=== PATIENT | male | born 1985 | race Caucasian/White ===

== ENCOUNTER → 2017-02-17 | Outpatient (CLI) | payer MEDICARE | LOC: KOH-I 08:00 | DX: M25.561 Pain in right knee (principal); M25.461 Effusion, right knee | CPT/HCPCS: 73721 ==

== ENCOUNTER 2017-03-21 03:44 | Emergency (ER) | payer MEDICARE | END 2017-03-21 05:15 | disposition home or self-care (01) | LOC: ER1 03:44 | DX: K05.219 Aggressive periodontitis, localized, unspecified severity (principal); K02.9 Dental caries, unspecified | CPT/HCPCS: 96372; 99282; J0561; J1885 ==